=== PATIENT | female | born 1940 | race Caucasian/White ===

== ENCOUNTER 2024-03-27 09:14 | Inpatient (IN) | payer OTHER ==
[2024-03-27] VITALS (7 sets, daily range): BP systolic 94–160; BP diastolic 53–91; PULSE 71–88; RESP 16–18; TEMP 98.2
[~2024-03-27] VITALS: Ht 152.4 cm; Wt 46.4 kg
[2024-03-27 09:48] LABS: BASOPHILS % 1.1 % (0.0-2.0); EOSINOPHILS % 3.4 % (0.0-5.0); HEMATOCRIT. 30.5 % (36.0-48.0); HEMOGLOBIN. 10.1 g/dL (12.0-16.0); LYMPHOCYTES % 14.5 % (20.0-50.0); MEAN CORPUSCULAR HEMOGLOBIN 30.7 pg (28.0-32.0); MEAN CORPUSCULAR HGB CONC 33.1 g/dL (31.0-37.0); MEAN CORPUSCULAR VOLUME 92.6 fL (81.0-99.0); MEAN PLATELET VOLUME 7.9 fl (7.4-10.4); MONOCYTES % 8.2 % (2.0-8.0); NEUTROPHILS % 72.8 % (40.0-76.0); PLATELET 214 x1000/uL (130-400); RED BLOOD CELL COUNT 3.29 mill/uL (4.2-5.4); RED CELL DISTRIBUTION WIDTH 15.3 % (11.6-14.6); WHITE BLOOD COUNT 5.4 x1000/uL (4.5-11.0)
[2024-03-27 09:52] LABS: CHLORIDE 103 mEq/L (98-107); POTASSIUM 4.5 mEq/L (3.5-5.1); SODIUM 139 mEq/L (136-145)
[2024-03-27 09:53] LABS: CALCIUM 9.1 mg/dL (8.7-10.4); CARBON DIOXIDE 26 mEq/L (21-32)
[2024-03-27 09:58] LABS: GLUCOSE 98 mg/dL (70-105); UREA NITROGEN BLOOD 63 mg/dL (9-23)
[2024-03-27 09:59] LABS: TROPONIN I HIGH SENSITIVITY 32 ng/L (3.0-34)
[2024-03-27 10:35] LABS: CREATININE 6.7 mg/dL (0.6-1.0)
[2024-03-27] MEDS: MECLIZINE 25MG TABLET PO ONE (11:49)
[2024-03-27 13:25] LABS: HEPATITIS B SURFACE ANTIGEN NEGATIVE (Negative)
[2024-03-27 13:46] LABS: HEPATITIS A AB IGM NEGATIVE (Negative)
[2024-03-27 13:47] LABS: HEPATITIS B CORE AB IGM NEGATIVE (Negative); HEPATITIS C AB NON REACTIVE (Neg) (Negative)
[2024-03-27] MEDS ORDERED: ONDANSETRON HCL 4MG/2ML INJ IV PRN (14:45)
[2024-03-27] MEDS ORDERED: MAGNESIUM/ALUMINUM HYDROXIDE/SIMETHICONE 30ML UDC PO PRN (14:45)
[2024-03-27] MEDS ORDERED: ACETAMINOPHEN 325MG TABLET PO PRN (14:45)
[2024-03-27] MEDS: ACETAMINOPHEN 325MG TABLET PO PRN (16:05)
[2024-03-27] MEDS ORDERED: DEXTROSE 50% WATER 50ML SYRINGE IV PRN (17:15)
[2024-03-27] MEDS: INSULIN LISPRO 100 UNITS/ML SUBCUT SCH (18:20)
[2024-03-27] MEDS: AMLODIPINE 5MG TABLET PO SCH (18:23)
[2024-03-27 18:44] LABS: IRON 69 ug/dL (50-170)
[2024-03-27 18:45] LABS: LDL CHOLESTEROL 113 mg/dL (5-100); TRIGLYCERIDE 81 mg/dL (0-150)
[2024-03-27 18:46] LABS: CHOLESTEROL 193 mg/dL (<200); HDL CHOLESTEROL 63 mg/dL (>65)
[2024-03-27 18:47] LABS: TOTAL IRON BINDING CAPACITY 189 ug/dl (250-425)
[2024-03-27 20:26] LABS: FERRITIN 441 ng/mL (10-291)
[2024-03-27 20:27] LABS: FOLIC ACID (FOLATE) SERUM 9.32 ng/mL (>5.38)
[2024-03-27 20:28] LABS: VITAMIN B12 SERUM 165 pg/mL (211-911)
[2024-03-27] MEDS: BLOOD SUGAR DIAGNOSTIC STRIP TEST SCH (21:29)
[2024-03-27 23:03] LABS: CREATINE KINASE 58 IU/L (34-145)
[2024-03-28] VITALS (8 sets, daily range): BP systolic 109–150; BP diastolic 49–63; PULSE 66–102; RESP 17–19; TEMP 97.5–98.1
[2024-03-28] MEDS: PANTOPRAZOLE 40MG DR TABLET PO SCH (06:21)
[2024-03-28 06:50] LABS: CARBON DIOXIDE 24 mEq/L (21-32); CHLORIDE 111 mEq/L (98-107); POTASSIUM 4.8 mEq/L (3.5-5.1); SODIUM 142 mEq/L (136-145)
[2024-03-28 06:55] LABS: GLUCOSE 91 mg/dL (70-105)
[2024-03-28 06:56] LABS: LDL CHOLESTEROL 109 mg/dL (5-100); TRIGLYCERIDE 104 mg/dL (0-150); UREA NITROGEN BLOOD 27 mg/dL (9-23)
[2024-03-28 06:57] LABS: ALANINE AMINOTRANSFERASE < 7 IU/L (10-49); ALBUMIN 3.7 g/dL (3.2-4.8); ASPARTATE AMINOTRANSFERASE 16 IU/L (<34); CHOLESTEROL 191 mg/dL (<200); CREATINE KINASE 44 IU/L (34-145)
[2024-03-28 06:58] LABS: BILIRUBIN TOTAL 0.2 mg/dL (0.1-1.0); HDL CHOLESTEROL 57 mg/dL (>65)
[2024-03-28 07:01] LABS: T4 FREE 0.95 ng/dL (0.89-1.76)
[2024-03-28 07:02] LABS: THYROID STIMULATING HORMONE 3.02 uIU/mL (0.55-4.78)
[2024-03-28 07:04] LABS: CREATININE 3.5 mg/dL (0.6-1.0)
[2024-03-28 07:14] LABS: BASOPHILS % 1.2 % (0.0-2.0); HEMATOCRIT. 29.4 % (36.0-48.0); HEMOGLOBIN. 9.7 g/dL (12.0-16.0); LYMPHOCYTES % 15.6 % (20.0-50.0); MEAN CORPUSCULAR HEMOGLOBIN 30.4 pg (28.0-32.0); MEAN CORPUSCULAR HGB CONC 33.1 g/dL (31.0-37.0); MEAN CORPUSCULAR VOLUME 91.9 fL (81.0-99.0); MEAN PLATELET VOLUME 8.4 fl (7.4-10.4); MONOCYTES % 7.1 % (2.0-8.0); NEUTROPHILS % 73.1 % (40.0-76.0); PLATELET 192 x1000/uL (130-400); RED BLOOD CELL COUNT 3.19 mill/uL (4.2-5.4); RED CELL DISTRIBUTION WIDTH 15.2 % (11.6-14.6)
[2024-03-29] VITALS (10 sets, daily range): BP systolic 113–163; BP diastolic 52–80; PULSE 67–87; RESP 17–19; TEMP 97–98.3
[2024-03-29 06:28] LABS: CARBON DIOXIDE 22 mEq/L (21-32); CHLORIDE 111 mEq/L (98-107); POTASSIUM 5.3 mEq/L (3.5-5.1); SODIUM 142 mEq/L (136-145)
[2024-03-29 06:29] LABS: CALCIUM 9.1 mg/dL (8.7-10.4)
[2024-03-29 06:34] LABS: GLUCOSE 94 mg/dL (70-105); UREA NITROGEN BLOOD 48 mg/dL (9-23)
[2024-03-29 06:36] LABS: PHOSPHORUS 4.9 mg/dL (2.5-4.9)
[2024-03-29 06:40] LABS: CREATININE 5.1 mg/dL (0.6-1.0)
[2024-03-29 06:55] LABS: HEMATOCRIT 28.9 % (36.0-48.0); HEMOGLOBIN 9.4 g/dL (12.0-16.0); MEAN CORPUSCULAR HEMOGLOBIN 30.3 pg (28.0-32.0); MEAN CORPUSCULAR HGB CONC 32.6 g/dL (31.0-37.0); MEAN CORPUSCULAR VOLUME 92.9 fL (81.0-99.0); PLATELET 213 x1000/uL (130-400); RED BLOOD CELL COUNT 3.11 mill/uL (4.2-5.4); RED CELL DISTRIBUTION WIDTH 15.5 % (11.6-14.6)
[2024-03-29] MEDS: CLONIDINE 0.1MG TABLET PO PRN (21:42)
[2024-03-29] MEDS: EPOETIN ALFA 4000UNITS/ML VIAL SUBCUT SCH (21:45)
[2024-03-30] VITALS: BP 104/33; PULSE 70; RESP 18; TEMP 98.6
[2024-03-30 04:00] VITALS: BP 123/56; PULSE 76; RESP 20; TEMP 97.6
[2024-03-30 07:04] LABS: HEMATOCRIT 28.1 % (36.0-48.0); HEMOGLOBIN 9.3 g/dL (12.0-16.0); MEAN CORPUSCULAR HEMOGLOBIN 30.4 pg (28.0-32.0); MEAN CORPUSCULAR VOLUME 92.2 fL (81.0-99.0); PLATELET 205 x1000/uL (130-400); RED BLOOD CELL COUNT 3.05 mill/uL (4.2-5.4); RED CELL DISTRIBUTION WIDTH 15.5 % (11.6-14.6); WHITE BLOOD COUNT 4.8 x1000/uL (4.5-11.0)
[2024-03-30 07:19] LABS: CARBON DIOXIDE 25 mEq/L (21-32); CHLORIDE 107 mEq/L (98-107); SODIUM 139 mEq/L (136-145)
[2024-03-30 07:20] LABS: CALCIUM 8.9 mg/dL (8.7-10.4)
[2024-03-30 07:25] LABS: CREATININE 4.4 mg/dL (0.6-1.0); GLUCOSE 86 mg/dL (70-105); UREA NITROGEN BLOOD 43 mg/dL (9-23)
[2024-03-30 07:27] LABS: PHOSPHORUS 5.2 mg/dL (2.5-4.9)
[2024-03-30 08:00] VITALS: BP 128/54; PULSE 72; RESP 16; TEMP 97.7
[2024-03-30 12:00] VITALS: BP 128/44; PULSE 75; RESP 20; TEMP 98
[2024-03-30 12:56] VITALS: BP 128/44; PULSE 75; TEMP 98; O2SAT 98
== END 2024-03-30 14:40 | disposition home or self-care (01) | DRG 48 ==
LOC: ER 10:11 → 5WST 12:19 → EDBEDREQ 12:31 → EDBEDREQTM 12:31 → 7EST 03-28 03:17
PROVIDERS: ADMIT Internal Medicine; ATTEND Internal Medicine
PROC: 5A1D70Z Performance of Urinary Filtration, Intermittent, Less than 6 Hours Per Day (ICD-10-PCS; principal; 2024-03-27)
PROC: 5A1D70Z Performance of Urinary Filtration, Intermittent, Less than 6 Hours Per Day (ICD-10-PCS; 2024-03-29)
DX: G90.8 Other disorders of autonomic nervous system (principal); I12.0 Hypertensive chronic kidney disease with stage 5 chronic kidney disease or end stage renal disease; S09.8XXA Other specified injuries of head, initial encounter; N18.6 End stage renal disease; D63.1 Anemia in chronic kidney disease; E16.2 Hypoglycemia, unspecified; Z99.2 Dependence on renal dialysis; Z79.899 Other long term (current) drug therapy; W18.30XA Fall on same level, unspecified, initial encounter; Y93.89 Activity, other specified; Y92.89 Other specified places as the place of occurrence of the external cause; Y99.8 Other external cause status
CPT/HCPCS: 36415; 71045; 80048; 80053; 80061; 82550; 82607; 82728; 82746; 82962; 83036; 83540; 83550; 83735; 83880; 84100; 84439; 84443; 84484; 85025; 85027; 85044; 86705; 86709; 87340; 90935; 93005; 93306; 93880; 93970; 97162; 99285; J0885; J8597

== ENCOUNTER 2024-05-13 23:51 | Emergency (ER) | payer MEDICAID ==
[~2024-05-13] VITALS: Ht 149.9 cm; Wt 40.0 kg
[2024-05-14 00:08] VITALS: O2SAT 98
[2024-05-14 08:35] VITALS: BP 127/86; PULSE 81; RESP 18; TEMP 98.5
== END 2024-05-14 08:36 | disposition home or self-care (01) ==
LOC: ER 23:51
DX: M25.521 Pain in right elbow (principal); I12.0 Hypertensive chronic kidney disease with stage 5 chronic kidney disease or end stage renal disease; N18.6 End stage renal disease; G31.89 Other specified degenerative diseases of nervous system; Z99.2 Dependence on renal dialysis; W18.39XA Other fall on same level, initial encounter; Y93.89 Activity, other specified; Y92.89 Other specified places as the place of occurrence of the external cause; Y99.8 Other external cause status
CPT/HCPCS: 73080; 99284

== ENCOUNTER 2024-06-15 14:38 | Emergency (ER) | payer MEDICAID ==
[~2024-06-15] VITALS: Ht 149.9 cm; Wt 60.0 kg
[2024-06-15 14:55] VITALS: O2SAT 99
[2024-06-15] MEDS: MORPHINE SULFATE 2 MG/ML INJ (NOT FOR IM USE) IV ONE (15:38)
[2024-06-15] MEDS: ACETAMINOPHEN 325MG TABLET PO ONE (15:39)
[2024-06-15 15:40] LABS: BASOPHILS % 0.8 % (0.0-2.0); EOSINOPHILS % 3.3 % (0.0-5.0); HEMATOCRIT. 41.7 % (36.0-48.0); HEMOGLOBIN. 13.4 g/dL (12.0-16.0); LYMPHOCYTES % 11.3 % (20.0-50.0); MEAN CORPUSCULAR HGB CONC 32.2 g/dL (31.0-37.0); MEAN CORPUSCULAR VOLUME 93.3 fL (81.0-99.0); MEAN PLATELET VOLUME 8.2 fl (7.4-10.4); MONOCYTES % 9.5 % (2.0-8.0); NEUTROPHILS % 75.1 % (40.0-76.0); PLATELET 185 x1000/uL (130-400); RED BLOOD CELL COUNT 4.47 mill/uL (4.2-5.4); RED CELL DISTRIBUTION WIDTH 18.2 % (11.6-14.6); WHITE BLOOD COUNT 5.8 x1000/uL (4.5-11.0)
[2024-06-15 15:47] LABS: CARBON DIOXIDE 34 mEq/L (21-32); CHLORIDE 104 mEq/L (98-107); SODIUM 145 mEq/L (136-145)
[2024-06-15 15:48] LABS: CALCIUM 9.4 mg/dL (8.7-10.4)
[2024-06-15 15:52] LABS: CREATININE 4.9 mg/dL (0.6-1.0); GLUCOSE 133 mg/dL (70-105)
[2024-06-15 15:53] LABS: UREA NITROGEN BLOOD 40 mg/dL (9-23)
[2024-06-15 15:54] LABS: ALANINE AMINOTRANSFERASE 8 IU/L (10-49); ALBUMIN 3.9 g/dL (3.2-4.8); ASPARTATE AMINOTRANSFERASE 21 IU/L (<34); INR 0.9; PROTHROMBIN TIME 10.3 sec (9.6-11.0)
[2024-06-15 15:55] LABS: BILIRUBIN TOTAL 0.3 mg/dL (0.1-1.0); PHOSPHORUS 5.6 mg/dL (2.5-4.9); PROTEIN TOTAL 6.6 g/dL (6.0-8.3)
[2024-06-15 18:30] VITALS: BP 123/79; PULSE 98; RESP 17; TEMP 37.00296; O2SAT 99
== END 2024-06-15 18:56 | disposition home or self-care (01) ==
LOC: ER 14:41
DX: S00.03XA Contusion of scalp, initial encounter (principal); I12.0 Hypertensive chronic kidney disease with stage 5 chronic kidney disease or end stage renal disease; N18.6 End stage renal disease; W01.0XXA Fall on same level from slipping, tripping and stumbling without subsequent striking against object, initial encounter; Y93.89 Activity, other specified; Y92.89 Other specified places as the place of occurrence of the external cause; Y99.8 Other external cause status
CPT/HCPCS: 99285; 70450; 96374; 71045; 80053; 83735; 84100; 85025; 85610; 36415; 73030; 72125; J2270

== ENCOUNTER 2024-10-31 13:15 | Emergency (ER) | payer MEDICAID, OTHER ==
[~2024-10-31] VITALS: Ht 152.4 cm; Wt 50.0 kg
[2024-10-31 13:42] VITALS: O2SAT 100
[2024-10-31 13:45] VITALS: BP 152/60; PULSE 84; RESP 18; TEMP 98.3; O2SAT 96
[2024-10-31 16:19] LABS: HEMOGLOBIN 11.4 g/dL (12.0-16.0); MEAN CORPUSCULAR HGB CONC 32.6 g/dL (31.0-37.0); MEAN CORPUSCULAR VOLUME 95.2 fL (81.0-99.0); PLATELET 203 x1000/uL (130-400); RED BLOOD CELL COUNT 3.68 mill/uL (4.2-5.4); RED CELL DISTRIBUTION WIDTH 17.1 % (11.6-14.6); WHITE BLOOD COUNT 5.8 x1000/uL (4.5-11.0)
[2024-10-31 16:26] LABS: POTASSIUM 4.7 mEq/L (3.5-5.1)
[2024-10-31 16:28] LABS: CALCIUM 9.7 mg/dL (8.7-10.4)
[2024-10-31 16:53] LABS: CREATININE 5.1 mg/dL (0.6-1.0)
[2024-11-05 08:10] LABS: QFT MITOGEN VALUE 0.06 IU/mL (.); QFT TB GOLD PLUS Indeterminate (Negative); QFT TB1 AG VALUE 0.01 IU/mL (.); QFT TB2 AG VALUE 0.04 IU/mL (.)
== END 2024-10-31 15:35 | disposition home or self-care (01) ==
LOC: ER 13:15
DX: Z11.1 Encounter for screening for respiratory tuberculosis (principal); I12.0 Hypertensive chronic kidney disease with stage 5 chronic kidney disease or end stage renal disease; N18.6 End stage renal disease; Z99.2 Dependence on renal dialysis; Z98.890 Other specified postprocedural states
CPT/HCPCS: 36415; 71045; 80048; 85027; 86480; 99284